=== PATIENT | female | born 1970 | race Two or more races ===

== ENCOUNTER 2020-03-28 09:00 | Outpatient (CLI) | payer BC | END 2020-03-28 23:59 | disposition home or self-care (01) | LOC: MSC 09:00 | PROVIDERS: ATTEND Internal Medicine | DX: M77.11 Lateral epicondylitis, right elbow (principal); F32.9 Major depressive disorder, single episode, unspecified; E78.00 Pure hypercholesterolemia, unspecified; R73.03 Prediabetes; Z79.899 Other long term (current) drug therapy ==

== ENCOUNTER 2020-05-14 12:58 | Outpatient (CLI) | payer BC | END 2020-05-14 23:59 | disposition home or self-care (01) | LOC: MSC 12:58 | PROVIDERS: ATTEND Internal Medicine | DX: B34.2 Coronavirus infection, unspecified (principal); R00.0 Tachycardia, unspecified; M77.10 Lateral epicondylitis, unspecified elbow; F32.9 Major depressive disorder, single episode, unspecified; E78.00 Pure hypercholesterolemia, unspecified; E11.9 Type 2 diabetes mellitus without complications; Z79.84 Long term (current) use of oral hypoglycemic drugs; Z79.899 Other long term (current) drug therapy ==

== ENCOUNTER 2020-08-22 09:25 | Outpatient (CLI) | payer SELFPAY | END 2020-08-22 23:59 | disposition home or self-care (01) | LOC: MSC 09:25 | PROVIDERS: ATTEND Internal Medicine | DX: R07.89 Other chest pain (principal); R43.0 Anosmia; Z86.16 Personal history of COVID-19; F32.9 Major depressive disorder, single episode, unspecified; E78.00 Pure hypercholesterolemia, unspecified; E11.9 Type 2 diabetes mellitus without complications; Z79.84 Long term (current) use of oral hypoglycemic drugs; M77.10 Lateral epicondylitis, unspecified elbow; Z82.3 Family history of stroke; Z79.899 Other long term (current) drug therapy ==